=== PATIENT | male | born 1935 | race Caucasian/White ===

== ENCOUNTER 2018-01-23 12:37 | Emergency (ER) | payer OTHER ==
[~2018-01-23] VITALS: Ht 175.3 cm; Wt 61.2 kg
--- NOTE | ~2018-01-23 | EKG ---
[address] [place] [address] ELECTROCARDIOGRAM REPORT Name: ADRIANO WATTERS [id number] Admission: 01/23/18 Attend Phys: Discharge: 01/23/18 Date of : 39 Report #: [id number] THIS REPORT FOR: //name// [facility]ly [facility] ED Test Date: 2018-01-23 Test Time: 13:27:59 Pat Name: ADRIANO WATTERS Department: Room: Gender: Quality Auditor: 14 : 1935 Requested By: Nieves Balderas Order Number: [id number] MD: Odell Bhakta Measurements Intervals [place] Rate: 48 P: -41 MI: 209 QRS: -16 QRSD: 90 T: 46 QT: 424 QTc: 379 Interpretive Statements Sinus bradycardia Otherwise normal tracing Compared to ECG 03/20/2005 11:42:00 Sinus bradycardia is now present Electronically Signed On 01-24-2018 7:30:34 CDT by Odell Bhakta [email or web address] <ELECTRONICALLY SIGNED> By: Odell Bhakta MD, [facility] 01/24/18 0730 1327 1327 Odell Bhakta MD, FACC /EPI
[2018-01-23] MEDS ORDERED: CLONAZEPAM 1 MG1 M1 PO (13:01)
[2018-01-23] MEDS ORDERED: ATENOLOL 50MG T50 M1 PO (13:01)
[2018-01-23 14:19] LABS: ABSOLUTE NEUTROPHILS 5.6 thou/uL (1.4-8.2); BASOPHILS 0.8 % (0.0-2.0); EOSINOPHILS 2.4 % (0.0-3.0); HEMOGLOBIN 13.9 gm/dL (14.0-18.0); LYMPHOCYTES 16.8 % (24.0-44.0); MCH 31.7 pg (26.0-34.0); MCHC 35.6 g/dL (28.0-37.0); MCV 89.1 fL (80.0-100.0); MONOCYTES 7.6 % (1.0-8.0); PLATELET COUNT 195 thou/uL (150-400); POLYS 72.4 % (36.0-66.0); RBC 4.38 mil/uL (4.50-6.00); RDW 12.7 % (10.5-14.5); WBC 7.8 thou/uL (4.0-11.0)
[2018-01-23 14:27] LABS: ANION GAP 2 mmol/L (7-16); BUN 16 mg/dL (7-18); CALCIUM 9.5 mg/dL (8.5-10.1); CHLORIDE 97 mmol/L (98-107); CO2 33 mmol/L (21-32); CREATININE 0.9 mg/dL (0.7-1.3); GLUCOSE 90 mg/dL (74-106); POTASSIUM 4.8 mmol/L (3.5-5.1); SODIUM 132 mmol/L (136-145)
[2018-01-23 14:36] LABS: ALBUMIN 3.8 g/dL (3.4-5.0); SGOT 20 U/L (15-37); SGPT 30 U/L (30-65); TOTAL BILIRUBIN 1.8 mg/dL (<0.1-1.0); TOTAL PROTEIN 7.6 g/dL (6.4-8.2); TROPONIN-I <0.06 ng/mL (<0.06)
[2018-01-23 15:18] LABS: URINE BILIRUBIN NEGATIVE (Negative); URINE BLOOD NEGATIVE (Negative); URINE CLARITY CLEAR; URINE COLOR YELLOW; URINE GLUCOSE-RANDOM* NEGATIVE (Negative); URINE KETONES NEGATIVE (Negative); URINE LEUKOCYTES-REFLEX NEGATIVE (Negative); URINE NITRITE-REFLEX NEGATIVE (Negative); URINE PROTEIN (DIPSTICK) TRACE (Negative); URINE SPECIFIC GRAVITY <= 1.005 (1.005-1.035); URINE UROBILINOGEN 0.2 E.U./dl (0.2-1.0)
[2018-01-23 17:14] VITALS: BP 170/87
== END 2018-01-23 17:15 | disposition home or self-care (01) ==
LOC: ER 12:37
PROVIDERS: Nurse Practitioner Family
DX: K21.9 Gastro-esophageal reflux disease without esophagitis (principal); F41.9 Anxiety disorder, unspecified; K22.4 Dyskinesia of esophagus; I10 Essential (primary) hypertension

== ENCOUNTER 2018-05-29 13:47 | Emergency (ER) | payer OTHER ==
[~2018-05-29] VITALS: Ht 175.3 cm; Wt 63.5 kg
[~2018-05-29 13:47] MED LIST: ATENOLOL 50MG T50 M1 PO; CLONAZEPAM 1 MG1 M1 PO
[2018-05-29 15:04] LABS: URINE BILIRUBIN NEGATIVE (Negative); URINE BLOOD NEGATIVE (Negative); URINE CLARITY CLEAR; URINE COLOR YELLOW; URINE GLUCOSE-RANDOM* NEGATIVE (Negative); URINE KETONES NEGATIVE (Negative); URINE LEUKOCYTES-REFLEX NEGATIVE (Negative); URINE NITRITE-REFLEX NEGATIVE (Negative); URINE PROTEIN (DIPSTICK) TRACE (Negative); URINE SPECIFIC GRAVITY 1.015 (1.005-1.035); URINE UROBILINOGEN 0.2 E.U./dl (0.2-1.0)
[2018-05-29] MEDS ORDERED: XANAX 0.25 MG0.25 MG PO (15:22)
== END 2018-05-29 15:50 | disposition home or self-care (01) ==
LOC: ER 13:47
PROVIDERS: Nurse Practitioner Family
DX: K59.00 Constipation, unspecified (principal); K21.9 Gastro-esophageal reflux disease without esophagitis; I10 Essential (primary) hypertension; Z87.891 Personal history of nicotine dependence